=== PATIENT | female | born 1975 | race Caucasian/White ===

== ENCOUNTER 2021-12-09 17:20 | Emergency (ER) | payer SELFPAY ==
[~2021-12-09] VITALS: Ht 152.4 cm; Wt 83.9 kg
[2021-12-09 17:30] VITALS: BP 139/71
[2021-12-09] MEDS ORDERED: ACETAMINOPHEN 500 MG TAB PO ONE (18:45)
[2021-12-09] MEDS ORDERED: KETOROLAC TROMETH 60MG/2ML VIAL IM ONE (18:45)
[2021-12-09] MEDS ORDERED: diazePAM 2 MG TAB PO ONE (18:45)
== END 2021-12-09 21:37 | disposition left against medical advice (07) ==
LOC: ER 17:20
DX: S33.5XXA Sprain of ligaments of lumbar spine, initial encounter (principal); Z53.29 Procedure and treatment not carried out because of patient's decision for other reasons; X50.1XXA Overexertion from prolonged static or awkward postures, initial encounter; Y93.89 Activity, other specified; Y92.89 Other specified places as the place of occurrence of the external cause; Y99.8 Other external cause status
CPT/HCPCS: 72128; 72131; 96372; 99284; J1885

== ENCOUNTER 2022-10-20 11:52 | Emergency (ER) | payer OTHER ==
[~2022-10-20] VITALS: Ht 152.4 cm; Wt 85.0 kg
[2022-10-20] MEDS ORDERED: KETOROLAC TROMETH 30 MG/ML 1ML VIAL IV ONE (12:15)
[2022-10-20] MEDS ORDERED: METOCLOPRAMIDE HCL 5MG/ml INJ 2ml VIAL IV ONE (12:15)
[2022-10-20 12:51] LABS: Basophils # (auto) 0 10 ^3/uL (0-0.2); Basophils % (auto) 0.5 % (0.0-2.0); Eosinophils # (auto) 0 10 ^3/uL (0-0.8); Eosinophils % (auto) 0.5 % (0.0-7.0); Hematocrit 37.6 % (36.0-46.0); Hemoglobin 12.9 g/dL (12.2-16.2); Lymphocytes # (auto) 1.3 10 ^3/uL (0.4-5.4); Lymphocytes % (auto) 15.9 % (10.0-50.0); Mean Corpuscular Hemoglobin 29.7 pg (28.0-32.0); Mean Corpuscular Hgb Conc. 34.3 g/dL (32.0-36.0); Mean Corpuscular Volume 86.4 fL (80.0-100.0); Monocytes # (auto) 0.3 10 ^3/uL (0-1.3); Monocytes % (auto) 4.1 % (0.0-12.0); Neutrophils # (auto) 6.7 10 ^3/uL (1.6-8.6); Nucleated Red Blood Cells % 0.1 %; Red Blood Cells 4.35 10^6/uL (4.0-5.20); Red Cell Distribution Width 14.3 % (11.8-14.3); White Blood Cell 8.5 10^3/uL (4.4-10.8)
[2022-10-20 13:07] LABS: Albumin 3.9 g/dL (3.4-5.0); BUN/Creatinine Ratio 13.7; Calcium 8.8 mg/dL (8.5-10.1); Potassium 3.8 mmol/L (3.5-5.1)
[2022-10-20 13:11] LABS: Bilirubin, Total 0.3 mg/dL (0.2-1.0); Total Protein 7.3 g/dL (6.4-8.2)
[2022-10-20] MEDS ORDERED: HYDROmorphone HCL 2 MG/ML VL/or syr IV ONE ×2 (14:15→16:45)
[2022-10-20] MEDS ORDERED: TAM04C PO (15:57)
[2022-10-20] MEDS ORDERED: DICL50TA2 PO (15:57)
[2022-10-20] MEDS ORDERED: HYDR-4798 PO ×2 (15:57→16:00)
[2022-10-20] MEDS ORDERED: TAMSULOSIN HYDROCHLORIDE 0.4 MG CAP PO ONE (16:00)
[2022-10-20 16:15] LABS: Urine Bacteria NONE SEEN /hpf (None Seen); Urine Blood 3+ /uL (Negative); Urine Budding Yeast MODERATE /hpf (None Seen); Urine Mucus FEW (None Seen); Urine Specific Gravity 1.018 (1.001-1.035); Urine WBC 55 /hpf (0 - 5)
[2022-10-20] MEDS ORDERED: ONDANSETRON HCL 4 MG/2 ML VIAL ONE (16:44)
[2022-10-20 16:45] VITALS: BP 122/74
[2022-10-20] MEDS ORDERED: ONDANSETRON HCL 4 MG/2 ML VIAL IV ONE (18:00)
== END 2022-10-20 16:02 | disposition home or self-care (01) ==
LOC: EDBD 11:52 → ER 12:01
DX: N13.30 Unspecified hydronephrosis (principal); N20.2 Calculus of kidney with calculus of ureter; K42.9 Umbilical hernia without obstruction or gangrene; Z90.89 Acquired absence of other organs; Z79.899 Other long term (current) drug therapy
CPT/HCPCS: 36415; 74176; 80053; 81001; 84702; 85025; 96374; 96375; 96376; 99284; J1170; J1885; J2405; J2765

== ENCOUNTER 2023-02-03 05:44 | Emergency (ER) | payer OTHER ==
[~2023-02-03] VITALS: Ht 152.4 cm; Wt 91.8 kg
[~2023-02-03 05:44] MED LIST: DICL50TA2 PO; HYDR-4798 PO; TAM04C PO
[2023-02-03] MEDS ORDERED: ACET1CAP14 PO (08:59)
[2023-02-03] MEDS ORDERED: PROM1SOL4 PO (08:59)
[2023-02-03] MEDS ORDERED: ALBU108A5 IN (08:59)
[2023-02-03] MEDS ORDERED: guaiFENesin-DM 100/10mg/5ml SYR PO ONE (09:00)
[2023-02-03] MEDS ORDERED: ACETAMINOPHEN 500 MG TAB PO ONE (09:00)
[2023-02-03 10:00] VITALS: BP 143/88
== END 2023-02-03 10:22 | disposition home or self-care (01) ==
LOC: ER 05:44
DX: U07.1 COVID-19 (principal); Z87.442 Personal history of urinary calculi; Z90.89 Acquired absence of other organs; Z98.890 Other specified postprocedural states
CPT/HCPCS: 36415; 71045; 87426; 87804